=== PATIENT | male | born 1950 | race Caucasian/White ===

== ENCOUNTER 2017-08-20 09:53 | Observation (INO) | payer MEDICARE, BC ==
[2017-08-20] MEDS ORDERED: ASPIRIN 325 MG TABLET PO ONE (10:25)
--- NOTE | 2017-08-20 10:27 | ER Document Report ---
ED Medical Screen (RME) - General Chief Complaint: Chest Pain Stated Complaint: CHEST PAIN Time Seen by Provider: 08/20/17 10:25 Mode of Arrival: Ambulatory Information source: Patient TRAVEL OUTSIDE OF THE [place] IN LAST 30 DAYS: No - HPI Patient complains to provider of: cp Onset: Other - pt with episode of SSCP 2 weeks ago that resolved spontaneously. CP recurred last pm and has not gone away. Did not ASA today - Related Data Allergies/Adverse Reactions: No Known Allergies Allergy (Verified 08/20/17 09:53) Home Medications: Current Home Medications Finasteride [Proscar 5 mg Tablet] 5 mg PO DAILY 08/20/17 [History] Gabapentin [Gabapentin] 1 cap PO QHS 08/20/17 [History] Meloxicam [Meloxicam] 1 tab PO DAILY PRN 08/20/17 [History] Pravastatin Sodium 80 mg PO DAILY 08/20/17 [History] Telmisartan/Hydrochlorothiazid [Telmisartan-Hctz 80-25 mg Tab] 0.5 tab PO DAILY 08/20/17 [History] Valacyclovir HCl [Valacyclovir] 1 tab PO ASDIR PRN 08/20/17 [History] Past Medical History - Social History Chew tobacco use (# tins/day): No Frequency of alcohol use: None Drug Abuse: None Renal/ Medical History: Denies: Hx Peritoneal Dialysis Physical Exam - Vital signs Vitals: Temp Pulse Resp BP Pulse Ox 98.4 F 73 14 135/80 H 97 08/20/17 10:03 08/20/17 10:03 08/20/17 10:03 08/20/17 10:03 08/20/17 10:03 Course - Vital Signs Vital signs: Temp Pulse Resp BP Pulse Ox 98.4 F 73 14 135/80 H 97 08/20/17 10:03 08/20/17 10:03 08/20/17 10:03 08/20/17 10:03 08/20/17 10:03
[2017-08-20 11:02] LABS: ABSOLUTE EOSINOPHILS # (AUTO) 0.2 10^3/uL (0.0-0.6); ABSOLUTE LYMPHOCYTES (AUTO) 1.1 10^3/uL (0.5-4.7); ABSOLUTE MONOCYTES (AUTO) 0.5 10^3/uL (0.1-1.4); ABSOLUTE NEUT (AUTO) 3.2 10^3/uL (1.7-8.2); BASOPHILS % (AUTO) 0.5 % (0-2); EOSINOPHILS % (AUTO) 3.1 % (0-6); HEMOGLOBIN 15.7 g/dL (13.5-17.0); HGB HCT DIFFERENCE 2.1; LYMPHOCYTES % (AUTO) 21.8 % (13-45); MEAN CORPUSCULAR HEMOGLOBIN 31.1 pg (27.0-33.4); MEAN CORPUSCULAR VOLUME 89 fl (80-97); MONOCYTES % (AUTO) 9.8 % (3-13); RED BLOOD COUNT 5.05 10^6/uL (4.35-5.55); RED CELL DISTRIBUTION WIDTH 12.9 % (11.5-14.0); SEGMENTED NEUTROPHILS % (AUTO) 64.8 % (42-78); WHITE BLOOD COUNT 4.9 10^3/uL (4.0-10.5)
[2017-08-20] MEDS ORDERED: NITROGLYCERIN 2% OINTMENT 1 GM PACKET TP ONE (11:07)
[2017-08-20] MEDS ORDERED: NITROGLYCERIN 0.4 MG/TAB 25 TAB/BOTTLE SL PRN (11:07)
--- NOTE | 2017-08-20 11:12 | ER Document Report ---
ED Cardiac - General Chief Complaint: Chest Pain Stated Complaint: CHEST PAIN Time Seen by Provider: 08/20/17 10:25 Mode of Arrival: Ambulatory Information source: Patient Notes: 67-year-old male who presents today with some intermittent chest "tough discomfort" to the left side of the chest for the last 2 weeks. He denies any aggravating or relieving factors. He states it has become more constant since last evening. He denies any calf pain, leg swelling, recent trips or travel, current shortness of breath. Patient states nausea without vomiting or fevers. Patient does not smoke but does have a positive family history in both brothers with early cardiac disease. One brother had quadruple bypass at the age of 47. Second brother received 2 stents younger than 65. Patient also states that he has been out of his antacid medications for 1 month. - HPI Patient complains to provider of: Chest pain Use of: Other - See above Was the onset of pain: Gradual Is the pain a: New problem Chest pain location: Other Quality of pain: Other - See above Chest pain radiation location: None Severity now: Mild Severity at worst: Moderate Pain level currently: 2 Chest pain precipitating factors: See above Cardiac risk factors: Hypertension, + Family history, Dyslipidemia Positive cardiac history: No Associated symptoms: Other - See above Exacerbated by: Denies Relieved by: Nothing Similar symptoms previously: No Recently seen / treated by doctor: No - Related Data Allergies/Adverse Reactions: No Known Allergies Allergy (Verified 08/20/17 09:53) Home Medications: Current Home Medications Finasteride [Proscar 5 mg Tablet] 5 mg PO DAILY 08/20/17 [History] Gabapentin [Gabapentin] 1 cap PO QHS 08/20/17 [History] Meloxicam [Meloxicam] 1 tab PO DAILY PRN 08/20/17 [History] Pravastatin Sodium 80 mg PO DAILY 08/20/17 [History] Telmisartan/Hydrochlorothiazid [Telmisartan-Hctz 80-25 mg Tab] 0.5 tab PO DAILY 08/20/17 [History] Valacyclovir HCl [Valacyclovir] 1 tab PO ASDIR PRN 08/20/17 [History] Past Medical History - General Information source: Patient - Social History Smoking Status: Never Smoker Cigarette use (# per day): No Chew tobacco use (# tins/day): No Smoking Education Provided: No Frequency of alcohol use: None Drug Abuse: None Family History: Other - See above Patient has suicidal ideation: No Patient has homicidal ideation: No Renal/ Medical History: Denies: Hx Peritoneal Dialysis Review of Systems - Review of Systems Constitutional: denies: Fever EENT: denies: Eye discharge, Nose discharge Cardiovascular: denies: Chest pain, Palpitations, Dizziness Respiratory: denies: Cough, Short of breath Gastrointestinal: denies: Vomiting Genitourinary: denies: Dysuria Musculoskeletal: denies: Leg swelling Skin: Other - no hives. denies: Rash Neurological/Psychological: Other - no slurred speech -: Yes All other systems reviewed and negative Physical Exam - Vital signs Vitals: Temp Pulse Resp BP Pulse Ox 98.4 F 73 14 135/80 H 97 08/20/17 10:03 08/20/17 10:03 08/20/17 10:03 08/20/17 10:03 08/20/17 10:03 Notes: Reviewed vital signs and nursing note as charted by RN. CONSTITUTIONAL: Alert and oriented and responds appropriately to questions. Well -appearing; well-nourished HEAD: Normocephalic; atraumatic EYES: PERRL NECK: Supple without meningismus; non-tender; no cervical lymphadenopathy, no masses CARD: Regular rate and rhythm; no murmurs, no clicks, no rubs, no gallops; symmetric distal pulses RESP: Normal chest excursion without splinting or tachypnea; breath sounds clear and equal bilaterally ABD/GI: Normal bowel sounds; non-distended; soft, non-tender BACK: The back appears normal and is non-tender to palpation EXT: Normal ROM in all joints; non-tender to palpation; no edema SKIN: No acute lesions noted NEURO: CN II through XII are intact. Patient has 5 out of 5 bilateral upper and lower extremity strength PSYCH: The patient's mood and manner are appropriate. Grooming and personal hygiene are appropriate. Course - Re-evaluation Re-evalutation: 08/20/17 11:11 Given the above history and physical examination I do believe pulmonary embolism and aortic dissection to be extremely unlikely. I do believe this could be gastrointestinal in etiology. However, given the patient's age and family history, I do believe that the patient requires a full evaluation for cardiac etiology. EKG shows a heart of 69, normal sinus rhythm, normal axis, no obvious ST elevation or depression. 08/20/17 11:35 Chest pain is now resolved. First troponin unremarkable. Chest x-ray shows normal heart, normal mediastinum, no fractures, normal lung almazan, no pneumothorax. - Vital Signs Vital signs: Temp Pulse Resp BP Pulse Ox 98.4 F 73 14 135/80 H 97 08/20/17 10:03 08/20/17 10:03 08/20/17 10:03 08/20/17 10:03 08/20/17 10:03 - Laboratory Result Diagrams: 08/20/17 10:51 08/20/17 10:51 Laboratory results interpreted by me: 08/20/17 10:51 Glucose 142 H Calcium 10.5 H Creatine Kinase 38 L Discharge - Discharge Clinical Impression: Chest pain Qualifiers: Chest pain type: unspecified Qualified Code(s): R07.9 - Chest pain, unspecified Condition: Fair Disposition: ADMITTED OBSERVATION Admitting Provider: Hospitalist Unit Admitted: Telemetry
[2017-08-20 11:14] LABS: ALANINE AMINOTRANSFERASE 44 U/L (21-72); ALBUMIN 4.6 g/dL (3.5-5.0); ALKALINE PHOSPHATASE 79 U/L (38-126); ANION GAP 13 (5-19); ASPARTATE AMINO TRANSFERASE 19 U/L (17-59); BILIRUBIN,DIRECT 0.4 mg/dL (0.0-0.4); BILIRUBIN,TOTAL 0.6 mg/dL (0.2-1.3); BLOOD UREA NITROGEN 16 mg/dL (7-20); CALCIUM 10.5 mg/dL (8.4-10.2); CARBON DIOXIDE 25 mmol/L (22-30); CHLORIDE 104 mmol/L (98-107); CREATINE KINASE 38 U/L (55-170); CREATININE RESULT 1.01 mg/dL (0.52-1.25); GLUCOSE 142 mg/dL (75-110); POTASSIUM 4.4 mmol/L (3.6-5.0); SODIUM 141.5 mmol/L (137-145); TOTAL PROTEIN 7.6 g/dL (6.3-8.2)
[2017-08-20 11:26] LABS: CREATINE KINASE MB 0.37 ng/mL (<4.55); TROPONIN I < 0.012 ng/mL
[2017-08-20] MEDS ORDERED: ACETAMINOPHEN 325 MG TABLET PO PRN (12:41)
[2017-08-20] MEDS ORDERED: MAG HYDROX/AL HYDROX/SIMETH SUSP 30 ML UDCUP PO PRN (12:41)
--- NOTE | 2017-08-20 12:46 | RADIOLOGY REPORT (SQ) ---
EXAM DESCRIPTION: CHEST PA/LAT COMPLETED DATE/TIME: 08/20/2017 11:02 am REASON FOR STUDY: cp COMPARISON: None. EXAM PARAMETERS: NUMBER OF VIEWS: two views TECHNIQUE: Digital Frontal and Lateral radiographic views of the chest acquired. RADIATION DOSE: NA LIMITATIONS: none FINDINGS: LUNGS AND PLEURA: No opacities, masses or pneumothorax. No pleural effusion. MEDIASTINUM AND HILAR STRUCTURES: No masses or contour abnormalities. HEART AND VASCULAR STRUCTURES: Heart normal size. No evidence for failure. BONES: No acute findings. HARDWARE: None in the chest. OTHER: No other significant finding. IMPRESSION: NO SIGNIFICANT RADIOGRAPHIC FINDING IN THE CHEST. TECHNICAL DOCUMENTATION: JOB ID: [id number] [employer]- All Rights Reserved
[2017-08-20] MEDS ORDERED: ENOXAPARIN SODIUM INJ 40 MG/0.4 ML DISP.SYRIN SUBCUT ONE (14:30)
[2017-08-20] MEDS ORDERED: FAMOTIDINE 20 MG TABLET PO ONE (15:00)
[2017-08-20] MEDS ORDERED: INFLUENZA ADLT QUAD (36MOS+) 2017-18 VAC 0.5 ML SYR IM PRN (16:01)
--- NOTE | 2017-08-20 16:27 | PDOC H&P ---
History of Present Illness Admission Date/PCP: 08/20/17 12:51 SOCRATES MAURICIO MD Patient complains of: Atypical chest pain History of Present Illness: CRISTIANO HERNANDEZ is a 67 year old male with a past medical history significant for hypertension, hyperlipidemia, GERD, BPH, and chronic back pain who presented to the emergency department today with a one-week history of atypical , intermittent, chest pain. The pain is located to the left sternal border, is nonradiating, described as "aching and twisting," and is not associated with symptoms of headache, dizziness, palpitation, dyspnea, diaphoresis. The patient states that he cannot appreciate any exacerbating or alleviating factors ; it is not especially worsened by food or activity. He does believe that the pain may be associated to his reflux as he has recently increased his meloxicam frequency and been receiving steroid injections for chronic back pain. Upon arrival to the emergency department he declined nitro tabs but has consented to Nitropaste. He reports that his pain has since resolved. Initial workup in unrevealing. He is referred to the hospitalist service for observation under Chest Pain protocol. Past Medical History Cardiac Medical History: Reports: Hyperlipidema, Hypertension Denies: Myocardial Infarction Pulmonary Medical History: Reports: None EENT Medical History: Reports: None Neurological Medical History: Reports: None Endocrine Medical History: Reports: Diabetes Mellitus Type 2 - pre-diabetic Renal/ Medical History: Reports: None Malignancy Medical History: Reports: None GI Medical History: Reports: Gastroesophageal Reflux Disease Musculoskeltal Medical History: Reports: Other - Back pain Skin Medical History: Reports: None Psychiatric Medical History: Reports: None Traumatic Medical History: Reports: None Hematology: Reports: None Infectious Medical History: Reports: None Past Surgical History Past Surgical History: Reports: Appendectomy Social History Information Source: Patient, Relative Lives with: Spouse/Significant other Smoking Status: Never Smoker Frequency of Alcohol Use: Rare Hx Recreational Drug Use: No Hx Prescription Drug Abuse: No - Advance Directive Resuscitation Status: Full Code Family History Family History: CAD, Hyperlipidemia, Hypertension Parental Family History Reviewed: Yes Children Family History Reviewed: Yes Sibling(s) Family History Reviewed.: Yes Medication/Allergy Home Medications: Finasteride [Proscar 5 mg Tablet] 5 mg PO DAILY 08/20/17 Gabapentin [Gabapentin] 1 cap PO QHS 08/20/17 Meloxicam [Meloxicam] 1 tab PO DAILYP PRN 08/20/17 RX: Gabapentin [Neurontin 300 mg Capsule] 300 mg PO WSUPPER 08/20/17 RX: Pravastatin Sodium 80 mg PO DAILY 08/20/17 Telmisartan/Hydrochlorothiazid [Telmisartan-Hctz 80-25 mg Tab] 0.5 tab PO DAILY 08/20/17 Allergies/Adverse Reactions: No Known Allergies Allergy (Verified 08/20/17 09:53) Review of Systems Constitutional: ABSENT: chills, fever(s), headache(s), weight gain, weight loss Eyes: ABSENT: visual disturbances Ears: ABSENT: hearing changes Cardiovascular: PRESENT: chest pain. ABSENT: dyspnea on exertion, edema, orthropnea, palpitations Respiratory: ABSENT: cough, hemoptysis Gastrointestinal: PRESENT: heartburn. ABSENT: abdominal pain, constipation, diarrhea, hematemesis, hematochezia, nausea, vomiting Genitourinary: ABSENT: dysuria, hematuria Musculoskeletal: PRESENT: back pain. ABSENT: joint swelling Integumentary: ABSENT: rash, wounds Neurological: ABSENT: abnormal gait, abnormal speech, confusion, dizziness, focal weakness, syncope Psychiatric: ABSENT: anxiety, depression, homidical ideation, suicidal ideation Endocrine: ABSENT: cold intolerance, heat intolerance, polydipsia, polyuria Hematologic/Lymphatic: ABSENT: easy bleeding, easy bruising Physical Exam Vital Signs: Temp Pulse Resp BP Pulse Ox 98.4 F 72 16 125/64 94 08/20/17 15:44 08/20/17 15:44 08/20/17 15:44 08/20/17 15:44 08/20/17 15:44 General appearance: PRESENT: no acute distress, well-developed, well-nourished, other - Overweight Head exam: PRESENT: atraumatic, normocephalic Eye exam: PRESENT: conjunctiva pink, EOMI, PERRLA. ABSENT: scleral icterus Ear exam: PRESENT: normal external ear exam Mouth exam: PRESENT: moist, tongue midline Neck exam: ABSENT: carotid bruit, JVD, lymphadenopathy, thyromegaly Respiratory exam: PRESENT: clear to auscultation dorina, symmetrical, unlabored. ABSENT: rales, rhonchi, wheezes Cardiovascular exam: PRESENT: RRR, +S1, +S2. ABSENT: diastolic murmur, rubs, systolic murmur Pulses: PRESENT: normal dorsalis pedis pul Vascular exam: PRESENT: normal capillary refill GI/Abdominal exam: PRESENT: normal bowel sounds, soft. ABSENT: distended, guarding, mass, organolmegaly, rebound, tenderness Rectal exam: PRESENT: deferred Extremities exam: PRESENT: full ROM. ABSENT: calf tenderness, clubbing, pedal edema Neurological exam: PRESENT: alert, awake, oriented to person, oriented to place , oriented to time, oriented to situation, CN II-XII grossly intact. ABSENT: motor sensory deficit Psychiatric exam: PRESENT: appropriate affect, normal mood. ABSENT: homicidal ideation, suicidal ideation Skin exam: PRESENT: dry, intact, warm. ABSENT: cyanosis, rash Results Impressions: Chest X-Ray 08/20/17 10:25 IMPRESSION: NO SIGNIFICANT RADIOGRAPHIC FINDING IN THE CHEST. Assessment & Plan - Diagnosis (1) Atypical chest pain Is this a current diagnosis for this admission?: Yes Plan: The patient has been admitted for observation to the telemetry floor. The patient believes that his symptoms are primarily related to reflux and have been significantly worsened by his meloxicam and steroid use. He requests to be discharged from the emergency department but eventually is agreeable first short observational stay and trending of cardiac enzymes. HEART score: 5 (Moderate Risk) The patient received full dose aspirin and Nitropaste in the Emergency Department. He is on full dose Pravastatin at home. Will trend troponin. (2) GERD (gastroesophageal reflux disease) Is this a current diagnosis for this admission?: Yes Plan: Pt with a history of severe GERD, but was able to discontinue PPI approximately 1 year ago after weight reduction and dietary changes. He does report that he has not been careful of his diet, under increased stress, and taking increased doses of Meloxicam for back pain for approximately 1-[address] patient on Pepcid with Maalox as needed. (3) HTN (hypertension) Is this a current diagnosis for this admission?: Yes Plan: BP is acceptable; will continue home medication: telmisartan/HCTZ (4) Hyperlipidemia Is this a current diagnosis for this admission?: Yes Plan: Continue statin - Time Time Spent: 50 to 70 Minutes Anticipated discharge: Home Within: within 24 hours
[2017-08-20] MEDS ORDERED: FAMOTIDINE 20 MG TABLET PO SCH (22:00)
[2017-08-20] MEDS ORDERED: GABAPENTIN 300 MG CAPSULE PO SCH (22:00)
[2017-08-20] MEDS ORDERED: ATORVASTATIN CALCIUM 20 MG TABLET PO SCH (22:00)
--- NOTE | 2017-08-20 22:40 | EKG REPORT ---
SEVERITY:- BORDERLINE ECG - SINUS RHYTHM PROBABLE LEFT ATRIAL ABNORMALITY : Confirmed by: Deya Carpenter 20-Aug-2017 22:39:17
[2017-08-21 08:24] VITALS: BP 117/66
[2017-08-21] MEDS ORDERED: ASPIRIN 81 MG TABLET, CHEWABLE PO SCH (10:00)
[2017-08-21] MEDS ORDERED: HYDROCHLOROTHIAZIDE 12.5 MG CAPSULE PO SCH (10:00)
[2017-08-21] MEDS ORDERED: FINASTERIDE 5 MG TABLET PO SCH (10:00)
[2017-08-21] MEDS ORDERED: ENOXAPARIN SODIUM INJ 40 MG/0.4 ML DISP.SYRIN SUBCUT SCH (10:00)
[2017-08-21] MEDS ORDERED: LOSARTAN POTASSIUM 50 MG TABLET PO SCH (10:00)
[2017-08-21] MEDS ORDERED: (PENDING PHARMACY ID) (Pravastatin Sodium [Pravastatin Sodium] 80 MG) PO SCH (10:00)
--- NOTE | 2017-08-21 15:39 | PDOC DISCHARGE SUMMARY ---
General - Admit/Disc Date/PCP Admission Date/Primary Care Provider: 08/20/17 12:51 SOCRATES MAURICIO MD Discharge Date: 08/21/17 - Discharge Diagnosis (1) Atypical chest pain Is this a current diagnosis for this admission?: Yes Summary: The patient was was brought in for observation under chest pain protocol. He has a one-week history of intermittent chest pain that is not particularly worsened by activity and not relieved by rest. Denies associated symptoms of headache, dizziness, palpitation, dyspnea, nausea and diaphoresis. He does believe that the chest pain is related to reflux, she is no longer on a PPI and recently has increased his meloxicam dose and frequency secondary to chronic back pain. The patient was admitted on continuous telemetry. EKG: normal sinus rhythm without ST elevation. Chest x-ray did not demonstrate any significant findings. The troponins were negative. The patient declined to stay to have a cardiac stress test, stating that he would prefer to have this arranged as an outpatient procedure by his primary care provider. He is discharged to home with prescriptions for ASA and Pepcid. He is recommended to continue his high-dose pravastatin and telmisartan/ hydrochlorothiazide. He is advised to discontinue all NSAIDs. To follow-up with primary care provider within 1-2 weeks with strong recommendation for outpatient stress testing. (2) GERD (gastroesophageal reflux disease) Is this a current diagnosis for this admission?: Yes Summary: Patient with severe history of GERD, but was able to discontinue his PPI presently 1 year ago after weight reduction and dietary changes. He does report that he has not been careful of his diet, under increased stress, and taking increased dosing and frequency of meloxicam for chronic back pain for the last 2 weeks. The patient was placed on Pepcid with Maalox as needed with a slight reduction in his pain. (3) HTN (hypertension) Is this a current diagnosis for this admission?: No (4) Hyperlipidemia Is this a current diagnosis for this admission?: No - Additional Information Resuscitation Status: Full Code Discharge Diet: Cardiac, Diabetic Discharge Activity: Activity As Tolerated, Slowly Increase Activity, Weigh Daily Home Medications: Finasteride [Proscar 5 mg Tablet] 5 mg PO DAILY 08/20/17 Gabapentin 1 cap PO QHS 08/20/17 Gabapentin [Neurontin 300 mg Capsule] 300 mg PO WSUPPER 08/20/17 Pravastatin Sodium 80 mg PO DAILY 08/20/17 Telmisartan/Hydrochlorothiazid [Telmisartan-Hctz 80-25 mg Tab] 0.5 tab PO DAILY 08/20/17 Aspirin [Aspirin 81 mg Chewable Tablet] 81 mg PO DAILY #90 tab.chew 08/21/17 Famotidine [Pepcid 20 mg Tablet] 20 mg PO Q12 #60 tablet 08/21/17 History of Present Illness History of Present Illness: CRISTIANO HERNANDEZ is a 67 year old male with a past medical history significant for hypertension, hyperlipidemia, GERD, BPH, and chronic back pain who presented to the emergency department today with a one-week history of atypical , intermittent, chest pain. The pain is located to the left sternal border, is nonradiating, described as "aching and twisting," and is not associated with symptoms of headache, dizziness, palpitation, dyspnea, diaphoresis. The patient states that he cannot appreciate any exacerbating or alleviating factors ; it is not especially worsened by food or activity. He does believe that the pain may be associated to his reflux as he has recently increased his meloxicam frequency and been receiving steroid injections for chronic back pain. Upon arrival to the emergency department he declined nitro tabs but has consented to Nitropaste. He reports that his pain has since resolved. Initial workup in unrevealing. He is referred to the hospitalist service for observation under Chest Pain protocol. Physical Exam Vital Signs: Temp Pulse Resp BP Pulse Ox 97.6 F 65 17 117/66 99 08/21/17 08:25 08/21/17 08:25 08/21/17 08:25 08/21/17 08:25 08/21/17 08:25 Intake & Output 08/20/17 08/21/17 08/22/17 06:59 06:59 06:59 Intake Total 480 Output Total 600 Balance -120 Weight 87.3 kg General appearance: PRESENT: no acute distress, well-developed, well-nourished Head exam: PRESENT: atraumatic, normocephalic Eye exam: PRESENT: conjunctiva pink, EOMI, PERRLA. ABSENT: scleral icterus Ear exam: PRESENT: normal external ear exam Mouth exam: PRESENT: moist, tongue midline Neck exam: ABSENT: carotid bruit, JVD, lymphadenopathy, thyromegaly Respiratory exam: PRESENT: clear to auscultation dorina. ABSENT: rales, rhonchi, wheezes Cardiovascular exam: PRESENT: RRR. ABSENT: diastolic murmur, rubs, systolic murmur Pulses: PRESENT: normal dorsalis pedis pul Vascular exam: PRESENT: normal capillary refill GI/Abdominal exam: PRESENT: normal bowel sounds, soft. ABSENT: distended, guarding, mass, organolmegaly, rebound, tenderness Rectal exam: PRESENT: deferred Extremities exam: PRESENT: full ROM. ABSENT: calf tenderness, clubbing, pedal edema Neurological exam: PRESENT: alert, awake, oriented to person, oriented to place , oriented to time, oriented to situation, CN II-XII grossly intact. ABSENT: motor sensory deficit Psychiatric exam: PRESENT: appropriate affect, normal mood. ABSENT: homicidal ideation, suicidal ideation Skin exam: PRESENT: dry, intact, warm. ABSENT: cyanosis, rash Results Laboratory Results: 08/20/17 08/20/17 16:45 22:05 Troponin I < 0.012 < 0.012 Impressions: Chest X-Ray 08/20/17 10:25 IMPRESSION: NO SIGNIFICANT RADIOGRAPHIC FINDING IN THE CHEST. Qualifiers PATEINT BEING DISCHARGED WITH ANY OF THE FOLLOWING DIAGNOSIS?: No Plan Discharge Plan: Discharge to home with self-care. To follow-up with primary care provider within 1-2 weeks for arrangements for outpatient stress testing. Time Spent: Less than 30 Minutes
== END 2017-08-21 09:00 | disposition home or self-care (01) ==
LOC: ER 09:53 → EH 12:51 → 5 15:34
PROVIDERS: ADMIT Internal Medicine; ATTEND Internal Medicine
PROC: 3E0234Z Introduction of Serum, Toxoid and Vaccine into Muscle, Percutaneous Approach (ICD-10-PCS; principal; 2017-08-21)
DX: R07.89 Other chest pain (principal); K21.9 Gastro-esophageal reflux disease without esophagitis; G89.29 Other chronic pain; M54.9 Dorsalgia, unspecified; I10 Essential (primary) hypertension; E78.5 Hyperlipidemia, unspecified; N40.0 Benign prostatic hyperplasia without lower urinary tract symptoms; Z79.1 Long term (current) use of non-steroidal anti-inflammatories (NSAID); Z23 Encounter for immunization; Z90.49 Acquired absence of other specified parts of digestive tract; Z82.49 Family history of ischemic heart disease and other diseases of the circulatory system; Z79.899 Other long term (current) drug therapy
CPT/HCPCS: 93005; 99285; 96372; 36415; 82553; 82550; 85025; 80053; 84484; 71020; 90686; 93010; G0378 ×3; A9270 ×4; J1650; J3490